=== PATIENT | female | born 1960 | race Caucasian/White ===

== ENCOUNTER → 2017-11-20 | Outpatient (CLI) | payer OTHER ==
[~2017-11-20] MED LIST: ALBU90I INH; ALBU90OI61 INH; ASCO500 PO; ATOR20 PO; Aspirin EC81 MG PO; Benadryl 50 mg50 MG PO; CILO100 PO; CONEST.625 PO; CONEST1.25 PO; CYCL10 PO; Cleocin HCl150 MG PO; DIAZ10 PO; DOXE10 PO; DULO60 PO; FISH1000 PO; FLUT44OIA INH; GABA400 PO; HYDACE10B PO; ISOMON20 PO; KETO10 PO; LISI20 PO; MULVITMIND PO; NAPR500 PO; NAPR500ERA PO; NITR.6SL SL; PANT40 PO; PRAV20 PO; PROC10 PO; PROM25 PO; Percocet 5-3251 EACH PO; Prazosin HCl2 MG PO; Prednisone20 MG PO; RANI150 PO; SYNTHROID25 MCG PO; TIOT18; TRAM50 PO; TRIA80TC TOP; Zyvox600 MG PO
== END ==
LOC: LAB SHORT 18:44 → LAB 18:44
DX: L08.9 Local infection of the skin and subcutaneous tissue, unspecified (principal); D48.5 Neoplasm of uncertain behavior of skin
CPT/HCPCS: 87070; 87077; 87205

== ENCOUNTER → 2018-02-21 | Outpatient (CLI) | payer OTHER | LOC: LAB 17:12 → LAB SHORT 17:12 | DX: L08.9 Local infection of the skin and subcutaneous tissue, unspecified (principal) | CPT/HCPCS: 87070; 87077; 87147; 87186; 87205 ==

== ENCOUNTER → 2018-05-08 | Outpatient (CLI) | payer OTHER | LOC: LAB SHORT 17:05 → LAB 17:05 | DX: L08.9 Local infection of the skin and subcutaneous tissue, unspecified (principal); D48.5 Neoplasm of uncertain behavior of skin | CPT/HCPCS: 87070; 87077; 87147; 87186; 87205 ==

== ENCOUNTER → 2019-02-28 | Outpatient (CLI) | payer OTHER ==
[2019-03-05 15:06] LABS: HPV 16 Negative (Negative); HPV 18 Negative (Negative); HPV OTHER HR TYPES Negative (Negative)
== END | disposition home or self-care (01) ==
LOC: LAB SHORT 16:00 → LAB UCHC 16:00
PROVIDERS: Internal Medicine
DX: Z01.419 Encounter for gynecological examination (general) (routine) without abnormal findings (principal)
CPT/HCPCS: 87624; G0123

== ENCOUNTER → 2019-04-25 | Outpatient (CLI) | payer OTHER | END | disposition home or self-care (01) | LOC: LAB 17:06 → LAB SHORT 17:06 | DX: N39.0 Urinary tract infection, site not specified (principal) | CPT/HCPCS: 87077; 87086; 87186 ==

== ENCOUNTER → 2020-11-22 | Outpatient (CLI) | payer OTHER ==
[2020-11-22 18:15] LABS: BASOPHILS ABSOLUTE AUTO 0.09 K/mm3 (0.00-0.23); BASOPHILS PERCENT AUTO 1 % (0-2); EOSINOPHILS ABSOLUTE AUTO 0.11 K/mm3 (0.00-0.68); EOSINOPHILS PERCENT AUTO 1 % (0-6); Hematocrit 49.7 % (33.0-51.0); Hemoglobin 16.7 g/dL (11.5-16.0); IMMATURE GRAN ABSOLUTE AUTO 0.04 K/mm3 (0.00-0.10); IMMATURE GRAN PERCENT AUTO 0 % (0-1); LYMPHOCYTES ABSOLUTE AUTO 2.55 K/mm3 (0.84-5.20); LYMPHOCYTES PERCENT AUTO 25 % (21-46); MONOCYTES ABSOLUTE AUTO 1.12 K/mm3 (0.16-1.47); MONOCYTES PERCENT AUTO 11 % (4-13); Mean Corpuscular HGB 31.3 pg (26.0-34.0); Mean Corpuscular HGB Conc 33.6 g/dL (31.5-36.5); Mean Corpuscular Volume 93 fL (80-100); Mean Platelet Volume 10.1 fL (9.1-12.4); NEUTROPHILS ABSOLUTE AUTO 6.14 K/mm3 (1.96-9.15); NEUTROPHILS PERCENT AUTO 61 % (41-73); Platelet Count 346 K/mm3 (150-400); RDW Coefficient Variation 12.2 % (11.7-14.2); RDW Standard Deviation 42.1 fL (35.1-46.3); Red Blood Cell Count 5.33 M/mm3 (3.80-5.20); White Blood Cell Count 10.05 K/mm3 (4.00-11.30)
[2020-11-22 18:27] LABS: Albumin, Blood 3.7 g/dL (3.4-5.0); Anion Gap 5 mmol/L (6-16); Blood Urea Nitrogen 9 mg/dL (8-24); Bun/Creatinine Ratio 8.5 (12.0-20.0); CO2, Blood 23 mmol/L (21-32); Calcium, Blood 9.2 mg/dL (8.5-10.1); Chloride, Blood 108 mmol/L (98-108); Creatinine, Blood 1.06 mg/dL (0.40-1.00); Glomerular Filtration Rate 56 (60-); Glucose, Blood 89 mg/dL (70-99); Potassium, Blood 4.3 mmol/L (3.5-5.5); Sodium, Blood 136 mmol/L (136-145)
[2020-11-22 18:50] LABS: CHOL/HDL RATIO 5.1; Cholesterol 238 mg/dL (50-200); HDL Cholesterol 47 mg/dL (>39); LDL/HDL RATIO 3.1; Low Density Lipoprotein Chol 144 mg/dL (0-110); Triglycerides 237 mg/dL (30-160); Very Low Density Lipoprot Chol 47 mg/dL (6-32)
[2020-11-23 08:10] LABS: HIV SCREEN 4TH GENERATION WRFX Non Reactive (Non Reactive)
== END | disposition home or self-care (01) ==
LOC: LAB 17:24 → LAB SHORT 17:24
PROVIDERS: Student in an Organized Health Care Education/Training Program
DX: Z00.00 Encounter for general adult medical examination without abnormal findings (principal); Z11.59 Encounter for screening for other viral diseases; N39.0 Urinary tract infection, site not specified; E78.5 Hyperlipidemia, unspecified
CPT/HCPCS: 80061; 80069; 85025; 86803; 87077; 87086; 87186; 87389

== ENCOUNTER → 2021-01-18 | Outpatient (CLI) | payer OTHER | END | disposition home or self-care (01) | LOC: LAB SHORT 17:16 → LAB 17:16 | DX: N39.0 Urinary tract infection, site not specified (principal) | CPT/HCPCS: 87086 ==

== ENCOUNTER → 2021-03-01 | Outpatient (CLI) | payer OTHER ==
[2021-03-04 11:09] LABS: HPV 16 Negative (Negative); HPV 18 Negative (Negative); HPV OTHER HR TYPES Negative (Negative)
== END | disposition home or self-care (01) ==
LOC: LAB SHORT 14:10
PROVIDERS: Family Medicine
DX: Z01.419 Encounter for gynecological examination (general) (routine) without abnormal findings (principal); N39.0 Urinary tract infection, site not specified; R30.0 Dysuria
CPT/HCPCS: 87077; 87086; 87186; 87624; G0123

== ENCOUNTER 2021-03-28 22:15 | Emergency (ER) | payer OTHER ==
[~2021-03-28] VITALS: Ht 177.8 cm; Wt 95.2 kg
[2021-03-28 23:19] LABS: BASOPHILS ABSOLUTE AUTO 0.08 K/mm3 (0.00-0.23); BASOPHILS PERCENT AUTO 0 % (0-2); EOSINOPHILS ABSOLUTE AUTO 0.11 K/mm3 (0.00-0.68); EOSINOPHILS PERCENT AUTO 0 % (0-6); Hematocrit 46.3 % (33.0-51.0); Hemoglobin 15.9 g/dL (11.5-16.0); IMMATURE GRAN PERCENT AUTO 1 % (0-1); LYMPHOCYTES ABSOLUTE AUTO 1.51 K/mm3 (0.84-5.20); LYMPHOCYTES PERCENT AUTO 6 % (21-46); MONOCYTES ABSOLUTE AUTO 2.25 K/mm3 (0.16-1.47); MONOCYTES PERCENT AUTO 9 % (4-13); Mean Corpuscular HGB 32.6 pg (26.0-34.0); Mean Corpuscular HGB Conc 34.3 g/dL (31.5-36.5); Mean Corpuscular Volume 95 fL (80-100); Mean Platelet Volume 9.6 fL (9.1-12.4); NEUTROPHILS ABSOLUTE AUTO 22.43 K/mm3 (1.96-9.15); NEUTROPHILS PERCENT AUTO 84 % (41-73); Platelet Count 321 K/mm3 (150-400); RDW Coefficient Variation 12.4 % (11.7-14.2); RDW Standard Deviation 43.2 fL (35.1-46.3); Red Blood Cell Count 4.87 M/mm3 (3.80-5.20); White Blood Cell Count 26.58 K/mm3 (4.00-11.30)
[2021-03-28 23:43] LABS: Albumin, Blood 3.8 g/dL (3.4-5.0); Albumin/Globulin Ratio 1.2 (0.8-1.8); Bilirubin, Total 0.7 mg/dL (0.1-1.0); Bun/Creatinine Ratio 10.1 (12.0-20.0); Calcium, Blood 8.9 mg/dL (8.5-10.1); Creatinine, Blood 1.48 mg/dL (0.40-1.00); Globulin, Blood 3.2 g/dL (2.2-4.0); Potassium, Blood 3.8 mmol/L (3.5-5.5)
== END 2021-03-29 00:27 | disposition left against medical advice (07) ==
LOC: ER 22:15
PROVIDERS: Emergency Medicine
DX: R11.2 Nausea with vomiting, unspecified (principal); R19.7 Diarrhea, unspecified; Z53.21 Procedure and treatment not carried out due to patient leaving prior to being seen by health care provider
CPT/HCPCS: 80053; 83690; 85025; J2405

== ENCOUNTER → 2021-03-28 | Outpatient (CLI) | payer OTHER | END | disposition home or self-care (01) | LOC: LAB SHORT 16:45 | DX: N39.0 Urinary tract infection, site not specified (principal) | CPT/HCPCS: 87077; 87086; 87186 ==

== ENCOUNTER → 2021-04-06 | Outpatient (CLI) | payer OTHER | END | disposition home or self-care (01) | LOC: LAB SHORT 14:57 → LAB 14:57 | DX: N39.0 Urinary tract infection, site not specified (principal) | CPT/HCPCS: 87086 ==

== ENCOUNTER → 2022-06-01 | Outpatient (CLI) | payer OTHER ==
[~2022-06-01] MED LIST changes: +LOPE2C PO; +ONDA4ODT MM
[2022-06-01 19:26] LABS: Albumin, Blood 3.4 g/dL (3.4-5.0); Anion Gap 8 mmol/L (6-16); Blood Urea Nitrogen 10 mg/dL (8-24); CO2, Blood 22 mmol/L (21-32); Calcium, Blood 8.6 mg/dL (8.5-10.1); Chloride, Blood 110 mmol/L (98-108); Creatinine, Blood 1.11 mg/dL (0.40-1.00); Glomerular Filtration Rate 57 (60-); Glucose, Blood 81 mg/dL (70-99); Phosphorus, Blood 3.4 mg/dL (2.5-4.9); Potassium, Blood 4.1 mmol/L (3.5-5.5); Sodium, Blood 140 mmol/L (136-145)
== END | disposition home or self-care (01) ==
LOC: LAB 13:51 → LAB SHORT 13:51
PROVIDERS: Internal Medicine Nephrology
DX: N18.30 Chronic kidney disease, stage 3 unspecified (principal); D63.1 Anemia in chronic kidney disease
CPT/HCPCS: 80069; 85018

== ENCOUNTER → 2022-06-16 | Outpatient (CLI) | payer OTHER | LOC: LAB SHORT 12:49 → LAB 12:49 | DX: N39.0 Urinary tract infection, site not specified (principal) | CPT/HCPCS: 87086 ==

== ENCOUNTER 2023-01-25 12:06 | Day surgery (SDC) | payer OTHER ==
[~2023-01-25] VITALS: Ht 177.8 cm; Wt 100.1 kg
[2023-01-25] MEDS ORDERED: FLUT.05NI (12:38)
[2023-01-25] MEDS ORDERED: LOSA25 PO (12:38)
[2023-01-25] MEDS ORDERED: TOPI25C PO (12:38)
[2023-01-25] MEDS ORDERED: LIVALO4 MG PO (12:38)
[2023-01-25] MEDS ORDERED: LYRICA75 M1 (12:39)
[2023-01-25] MEDS ORDERED: PERCOCET 10-321 EA13 PO (12:39)
[2023-01-25] MEDS ORDERED: FAMO20 PO (12:39)
--- NOTE | 2023-01-25 12:45 | NUR ---
01/25/23 1245 AMRIT PAPPAS AND LEONEL IN AT 1236
[2023-01-25 13:49] VITALS: BP 95/76
== END 2023-01-25 13:46 | disposition home or self-care (01) ==
LOC: ORSCSDS 12:06
PROVIDERS: Ophthalmology
PROC: 08DJ3ZZ Extraction of Right Lens, Percutaneous Approach (ICD-10-PCS; principal; 2023-01-25 13:30)
DX: H25.11 Age-related nuclear cataract, right eye (principal); F32.A Depression, unspecified; I10 Essential (primary) hypertension; N18.9 Chronic kidney disease, unspecified; H40.9 Unspecified glaucoma; R06.02 Shortness of breath; F17.210 Nicotine dependence, cigarettes, uncomplicated; Z79.899 Other long term (current) drug therapy
CPT/HCPCS: J2250; J3301; J7040; V2632

== ENCOUNTER 2023-02-01 10:00 | Day surgery (SDC) | payer OTHER ==
[~2023-02-01] VITALS: Ht 177.8 cm; Wt 102.1 kg
[~2023-02-01 10:00] MED LIST changes: +FAMO20 PO; +FLUT.05NI; +LIVALO4 MG PO; +LOSA25 PO; +LYRICA75 M1; +PERCOCET 10-321 EA13 PO; +TOPI25C PO
[2023-02-01 11:39] VITALS: BP 113/66
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
== END 2023-02-01 11:58 | disposition home or self-care (01) ==
LOC: ORSCSDS 10:00
PROVIDERS: Ophthalmology
PROC: 08DK3ZZ Extraction of Left Lens, Percutaneous Approach (ICD-10-PCS; principal; 2023-02-01 11:30)
DX: H25.12 Age-related nuclear cataract, left eye (principal); Z96.1 Presence of intraocular lens; F17.210 Nicotine dependence, cigarettes, uncomplicated; I12.9 Hypertensive chronic kidney disease with stage 1 through stage 4 chronic kidney disease, or unspecified chronic kidney disease; N18.9 Chronic kidney disease, unspecified; G47.33 Obstructive sleep apnea (adult) (pediatric); Z79.899 Other long term (current) drug therapy
CPT/HCPCS: J2250; J3010; J3301; J7040; V2632

== ENCOUNTER → 2023-09-14 | Outpatient (CLI) | payer OTHER | LOC: LAB SHORT 15:44 → LAB 15:44 | DX: N39.0 Urinary tract infection, site not specified (principal) | CPT/HCPCS: 87077; 87086; 87186 ==

== ENCOUNTER → 2024-02-19 | Outpatient (CLI) | payer OTHER | END | disposition home or self-care (01) | LOC: LAB 16:44 → LAB SHORT 16:44 | DX: N39.0 Urinary tract infection, site not specified (principal) | CPT/HCPCS: 87086 ==

== ENCOUNTER 2025-06-23 18:27 | Observation (INO) | payer OTHER ==
[~2025-06-23] VITALS: Ht 177.8 cm; Wt 98.2 kg
[2025-06-23] MEDS ORDERED: Ondansetron HCl 2 MG / ML 2ML Vial IV ONE (18:30)
[2025-06-23] MEDS ORDERED: Morphine Sulfate 4 MG/1 ML Injection IV ONE (18:30)
[2025-06-23 19:07] LABS: BASOPHILS ABSOLUTE AUTO 0.11 K/mm3 (0.00-0.23); BASOPHILS PERCENT AUTO 0 % (0-2); EOSINOPHILS ABSOLUTE AUTO 0.15 K/mm3 (0.00-0.68); EOSINOPHILS PERCENT AUTO 1 % (0-6); Hematocrit 42.9 % (33.0-51.0); Hemoglobin 15.4 g/dL (11.5-16.0); IMMATURE GRAN ABSOLUTE AUTO 0.54 K/mm3 (0.00-0.10); IMMATURE GRAN PERCENT AUTO 2 % (0-1); LYMPHOCYTES ABSOLUTE AUTO 3.42 K/mm3 (0.84-5.20); LYMPHOCYTES PERCENT AUTO 11 % (21-46); MONOCYTES ABSOLUTE AUTO 1.92 K/mm3 (0.16-1.47); MONOCYTES PERCENT AUTO 6 % (4-13); Mean Corpuscular HGB Conc 35.9 g/dL (31.5-36.5); Mean Corpuscular Volume 95 fL (80-100); NEUTROPHILS ABSOLUTE AUTO 24.43 K/mm3 (1.96-9.15); NEUTROPHILS PERCENT AUTO 80 % (41-73); NRBC ABSOLUTE 0.00 K/mm3 (0.00-0.02); NRBC Auto 0.0 /100 WBC (0.0-0.2); RDW Coefficient Variation 12.3 % (11.7-14.2); RDW Standard Deviation 42.7 fL (35.1-46.3)
[2025-06-23 19:17] LABS: Alanine Aminotransfer (ALT/SGP 38.0 U/L (12-78); Albumin, Blood 3.5 g/dL (3.4-5.0); Albumin/Globulin Ratio 1.0 (0.8-1.8); Anion Gap 12.0 mmol/L (3-11); Aspartate Aminotrans (AST/SGOT 67.0 U/L (12-37); Bilirubin, Total 0.8 mg/dL (0.1-1.0); Blood Urea Nitrogen 12.0 mg/dL (8-24); CO2, Blood 23.0 mmol/L (21-32); Calcium, Blood 8.9 mg/dL (8.5-10.1); Chloride, Blood 106.0 mmol/L (98-108); Creatinine, Blood 0.96 mg/dL (0.40-1.00); Globulin, Blood 3.4 g/dL (2.2-4.0); Glucose, Blood 121.0 mg/dL (70-99); Potassium, Blood 4.9 mmol/L (3.5-5.5); Sodium, Blood 136.0 mmol/L (136-145); Total Protein, Blood 6.9 g/dL (6.4-8.2)
[2025-06-23 19:20] LABS: Platelet Count 269 K/mm3 (150-400)
[2025-06-23] MEDS ORDERED: FentaNYL Citrate 50 MCG/ML 2 ML Injection IV PRN ×3 (21:50→22:05)
[2025-06-23] MEDS ORDERED: Labetalol HCL 5 MG/ML 4ML Injection (Single Dose) IV PRN ×3 (21:50→22:05)
[2025-06-23] MEDS ORDERED: Metoclopramide HCl 5MG / ML 2ML Vial IV PRN ×3 (21:50→22:10)
[2025-06-23] MEDS ORDERED: FLU VACC TS2025-26(6MOS UP)/PF 45 MCG/0.5 ML SYRINGE IM SCH (21:50)
[2025-06-23] MEDS ORDERED: Albuterol 2.5 MG/3 ML VIAL INH PRN ×3 (21:55→22:10)
[2025-06-23] MEDS ORDERED: Ondansetron HCl 2 MG / ML 2ML Vial IV PRN ×3 (21:55→22:10)
[2025-06-23] MEDS ORDERED: OxyCODONE 10/Acetamin 325 TABLET PO PRN ×3 (21:55→22:10)
[2025-06-23] MEDS ORDERED: FLU VACC TS2025-26(6MOS UP)/PF 45 MCG/0.5 ML SYRINGE IM ONE ×2 (22:00→22:10)
[2025-06-23 22:39] VITALS: BP 132/71
--- NOTE | 2025-06-23 22:43 | NUR ---
ADMIT NOTE HANDOFF RECEIVED FROM SPEECH LANGUAGE PATHOLOGISTMEHRDAD RANDHAWA. PT ARRIVED TO FLOOR VIA GURNEY. PT ORIENTED TO UNIT. CALL BUTTON WITHIN REACH. PERSONAL POSSESSIONS WITH PATIENT. TELEMETRY IN PLACE: NSR @ 96 BPM
[2025-06-23] MEDS ORDERED: Ketorolac Tromethamine 15mg Vial IV PRN (22:50)
[2025-06-24] MEDS ORDERED: Albuterol HFA200 ACT/6.7 GM INH INH PRN (00:30)
[2025-06-24 03:41] LABS: BASOPHILS ABSOLUTE AUTO 0.04 K/mm3 (0.00-0.23); BASOPHILS PERCENT AUTO 0 % (0-2); EOSINOPHILS ABSOLUTE AUTO 0.03 K/mm3 (0.00-0.68); EOSINOPHILS PERCENT AUTO 0 % (0-6); Hematocrit 43.0 % (33.0-51.0); Hemoglobin 15.1 g/dL (11.5-16.0); IMMATURE GRAN ABSOLUTE AUTO 0.11 K/mm3 (0.00-0.10); IMMATURE GRAN PERCENT AUTO 1 % (0-1); LYMPHOCYTES ABSOLUTE AUTO 1.54 K/mm3 (0.84-5.20); LYMPHOCYTES PERCENT AUTO 12 % (21-46); MONOCYTES ABSOLUTE AUTO 1.11 K/mm3 (0.16-1.47); MONOCYTES PERCENT AUTO 8 % (4-13); Mean Corpuscular HGB Conc 35.1 g/dL (31.5-36.5); Mean Corpuscular Volume 95 fL (80-100); NEUTROPHILS ABSOLUTE AUTO 10.45 K/mm3 (1.96-9.15); NEUTROPHILS PERCENT AUTO 79 % (41-73); NRBC ABSOLUTE 0.00 K/mm3 (0.00-0.02); NRBC Auto 0.0 /100 WBC (0.0-0.2); Platelet Count 252 K/mm3 (150-400); RDW Coefficient Variation 12.2 % (11.7-14.2); RDW Standard Deviation 42.6 fL (35.1-46.3)
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
[2025-06-24 04:00] LABS: Alanine Aminotransfer (ALT/SGP 36.0 U/L (12-78); Albumin, Blood 3.4 g/dL (3.4-5.0); Albumin/Globulin Ratio 1.1 (0.8-1.8); Anion Gap 10.0 mmol/L (3-11); Aspartate Aminotrans (AST/SGOT 64.0 U/L (12-37); Bilirubin, Total 0.8 mg/dL (0.1-1.0); Blood Urea Nitrogen 11.0 mg/dL (8-24); CO2, Blood 24.0 mmol/L (21-32); Calcium, Blood 8.8 mg/dL (8.5-10.1); Chloride, Blood 106.0 mmol/L (98-108); Creatinine, Blood 0.96 mg/dL (0.40-1.00); Globulin, Blood 3.0 g/dL (2.2-4.0); Glucose, Blood 145.0 mg/dL (70-99); Potassium, Blood 3.9 mmol/L (3.5-5.5); Sodium, Blood 136.0 mmol/L (136-145); Total Protein, Blood 6.4 g/dL (6.4-8.2)
[2025-06-24 04:22] VITALS: BP 118/87
[2025-06-24 07:06] VITALS: BP 124/65
[2025-06-24] MEDS ORDERED: Enoxaparin 40 MG/0.4 ML SYR SC SCH ×3 (09:00)
[2025-06-24] MEDS ORDERED: Fluticasone 0.05% Nasal Spray SCH (09:00)
[2025-06-24] MEDS ORDERED: DULoxetine HCL 30 MG Cap DR PO SCH (09:00)
[2025-06-24 15:21] VITALS: BP 130/80
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
[2025-06-24 18:54] VITALS: BP 121/73
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
[2025-06-25 05:09] VITALS: BP 106/68
[2025-06-25 07:25] VITALS: BP 118/61
--- NOTE | 2025-06-25 10:18 | NUR ---
DISCHARGE SUMMARY PATIENT ALERT AND ORIENTED X4. COMMUNICATES NEEDS EFFECTIVELY. VSS. ON ROOM AIR - SATs >90%. DENIES SOB AT REST OR W/ ACTIVITY. ENCOURAGING USE OF INCENTIVE SPIROMETER. RIB PAIN MANAGED W/ HOME REGIMEN. TELEMETRY SHOWING SR 60s PRIOR TO REMOVAL. SBP 110s. MAP >65. VOIDING. TOLERATING PO INTAKE. INDEPENDENT W/ ADLs. MD ARCH[place]ALD AT BEDSIDE THIS MORNING - MO HOME ORDERED. PATIENTs SISTER ADMITTED TO HOSPITAL THIS MORNING - REQUESTING WC TRANSFER TO ROOM TO VISIT AT MO. PATIENTs FRIEND FROM [facility] TO TRANSFER PATIENT HOME. WRITTEN AND VERBAL EDUCATION PROVIDED - PATIENT STATES UNDERSTANDING. PERSONAL BELONGINGS W/ PATIENT.
== END 2025-06-25 10:45 | disposition home or self-care (01) ==
LOC: ER 18:27 → SURS 18:28
PROVIDERS: Emergency Medicine; Nurse Practitioner Acute Care; ADMIT Surgery
DX: S22.43XA Multiple fractures of ribs, bilateral, initial encounter for closed fracture (principal); S32.028A Other fracture of second lumbar vertebra, initial encounter for closed fracture; S32.038A Other fracture of third lumbar vertebra, initial encounter for closed fracture; S32.048A Other fracture of fourth lumbar vertebra, initial encounter for closed fracture; V43.52XA Car driver injured in collision with other type car in traffic accident, initial encounter; I10 Essential (primary) hypertension; I25.10 Atherosclerotic heart disease of native coronary artery without angina pectoris; J44.9 Chronic obstructive pulmonary disease, unspecified; F17.210 Nicotine dependence, cigarettes, uncomplicated; G89.29 Other chronic pain; E66.01 Morbid (severe) obesity due to excess calories; Z88.1 Allergy status to other antibiotic agents; Z88.2 Allergy status to sulfonamides; Z88.0 Allergy status to penicillin; Z88.5 Allergy status to narcotic agent; Z91.048 Other nonmedicinal substance allergy status
CPT/HCPCS: 36415; 70450; 71045; 71260; 72125; 74177; 80053; 85025; 93005; 93010; 94760; 96372; 96374; 96375; 99285-25; A9270; G0378; J1650; J2270; J2405; Q9967